=== PATIENT | female | born 1960 | race Caucasian/White ===

== ENCOUNTER 2023-03-13 11:01 | Outpatient (AMB) | payer MEDICARE, MEDICAID, SELFPAY ==
--- NOTE | 2023-03-13 11:05 | MHC.OFFVIS ---
Intake Vital Signs 03/13/23 11:09 Height 5 ft 2 in Weight 137 lb 2.04 oz BMI 25.1 BP 142/80 H Blood Pressure Location Rt brachial Position Sitting Pulse 80 Pulse Source Pulse Oximeter Temp 98.4 F Temp Source Skin Pulse Oximetry (%) 98 Intake Visit Reasons: Fibromyalgia -Confirmed Intake Note: New pt presents today for consult. 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 Her previous operations lieutenant left the practice. Patient stated that she was diagnosed around 2007 and was found to have Lyme disease as well as Kaitlin's granulomatosis. She had been on methotrexate for at least 15 years. She stated that she had been on 5 tabs once weekly for years and a few years ago her previous operations lieutenant Dr. Tuttle try to lower the dose to 4 tabs once weekly but her ANCA titers became positive so the dose was increased back to 5 tabs weekly. She is unaware of any other organ involvement other than the eyes. She denies any skin rashes, lung or kidney involvement. She follows up regularly with Ophthalmology. Recently patient has been having some right hand tingling and numbness as well as weakness. She was evaluated by hand surgeon and had a steroid injection without relief. She is scheduled for an EMG [facility] Medical History (Updated 03/13/23 @ 13:13 by Jerome Quinn MD) Cervical spondylosis with myelopathy Fibromyalgia Steroid-induced osteopenia Surgical History Hx of colonoscopy Status post ORIF of fracture of ankle Family History Mother Hypertension Hyperlipidemia Diabetes Erythromelalgia Depressive disorder Social History Household Members: Significant Other Alcohol intake: current Alcohol intake frequency: a few times a week Alcohol type: beer Patient Tobacco Use Status: Former Tobacco user Substance Use Type: Marijuana Current occupational status: retired and disabled 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 Female Reproductive History Menstrual Total pregnancies: 1 Ab induced: 1 Review of Systems Musc Reports arthralgias and Reports tingling Skin/Breast Denies rash Neuro Reports tingling Physical Exam Vital Signs: Last Vital Signs Temp 98.4 F 03/13/23 11:09 Pulse 80 03/13/23 11:09 BP 142/80 H 03/13/23 11:09 Pulse Ox 98 03/13/23 11:09 BMI result Body Mass Index 25.1 Const General: cooperative, healthy appearing and comfortable Nutritional Appearance: average body habitus Orientation/consciousness: patient oriented x3 Limitations: no limitations HEENT Head: Yes normocephalic and Yes atraumatic Mouth: moist mucous membranes Resp Effort & Inspection: normal respiratory effort and able to speak in complete sentences Auscultation: clear to auscultation bilaterally Cardio Rate: regular rate Rhythm: regular rhythm GI Inspection: No distended Palpation (GI): Soft to palpation and nontender Skin General skin exam: no rashes or lesions noted Neuro General: patient oriented x3 Results Reviewed Results Reviewed: Labs 06/2022? ANCA screen negative? MPO/PR3 negative? CRP normal Urinalysis with microscopic normal ESR normal? CBC unremarkable Assessment & Plan Assessment & Plan (1) Granulomatosis with polyangiitis: Comment: dx around 2007 retinal vasculitis & uveitis MTX since 2007 effective Code(s): M31.30 - Travis's granulomatosis without renal involvement Qualifiers: Granulomatosis renal involvement: without renal involvement Qualified Code(s): M31.30 - Travis's granulomatosis without renal involvement Plan: This is a 62-year-old female with a past medical history of GPA with retinal vasculitis and uveitis who presents as a new patient. Her previous operations lieutenant left the practice. Patient is unaware of any other organ involvement. Her disease has been very well controlled on methotrexate 12.5 mg once weekly for many years, a few years ago there was an attempt to reduce the dose to 10 mg once weekly but her ANCA titers became positive. Patient is in remission on current management. Resume methotrexate 12.5 mg weekly and folic acid daily Check labs today and in 3 months Follow-up in 6 months Plan I spent 46 minutes reviewing patient's chart, evaluating patient, ordering diagnostic workup, counseling patient and documenting in the chart Orders: Orders Comprehensive Met. Panel Today M3.30 - Travis's granulomatosis without renal involvement C Reactive Protein Today M31.30 - Travis's granulomatosis without renal involvement Protein Creatinine Ratio, Ur Today M31.30 - Travis's granulomatosis without renal involvement Complete Blood Count Auto Diff Today M31.30 - Travis's granulomatosis without renal involvement Erythrocyte Sedimentation Rate Today M31.30 - Travis's granulomatosis without renal involvement ANCA Vasculitides Today M3.30 - Travis's granulomatosis without renal involvement Immunofixation Pnl, Serum Today M3.30 - Travis's granulomatosis without renal involvement Protein Electrophoresis, Serum Today M3.30 - Travis's granulomatosis without renal involvement Hepatitis A,B,C Profile Today Z11.59 - Encounter for screening for other viral diseases T Spot TB Today Z11.7 - Encounter for testing for latent tuberculosis infection UA w Microscopic Today M31.30 - Travis's granulomatosis without renal involvement Comprehensive Met. Panel 3 Months 1.30 - Travis's granulomatosis without renal involvement C Reactive Protein 3 Months M31.30 - Travis's granulomatosis without renal involvement Protein Creatinine Ratio, Ur 3 Months M31.30 - Travis's granulomatosis without renal involvement Complete Blood Count Auto Diff 3 Months M31.30 - Travis's granulomatosis without renal involvement Erythrocyte Sedimentation Rate 3 Months M31.30 - Travis's granulomatosis without renal involvement UA w Microscopic 3 Months M31.30 - Travis's granulomatosis without renal involvement Coding Level of Care Code New Pt Level 4 (78410) Diagnoses Granulomatosis with polyangiitis Granulomatosis renal involvement: without renal involvement
[2023-03-13 11:09] VITALS: BP 142/80; PULSE 80; TEMP 36.9; O2SAT 98; BMI 25.1
== END 2023-03-13 11:52 | disposition home or self-care (01) ==
PROVIDERS: PCP Physician Assistant Medical; Visit Provider Student in an Organized Health Care Education/Training Program
DX: M31.30 Wegener's granulomatosis without renal involvement (principal)
CPT/HCPCS: 99204

== ENCOUNTER → 2023-03-13 11:01 | Outpatient (BNVA) | payer MEDICARE, MEDICAID, SELFPAY | PROVIDERS: PCP Physician Assistant Medical; Visit Provider Student in an Organized Health Care Education/Training Program | DX: M31.30 Wegener's granulomatosis without renal involvement (principal) | CPT/HCPCS: 99202 ==

== ENCOUNTER 2023-10-03 10:54 | Outpatient (AMB) | payer MEDICARE, MEDICAID, SELFPAY ==
[2023-10-03 10:57] VITALS: BP 130/68; PULSE 86; TEMP 36.1; O2SAT 91; BMI 24.4
--- NOTE | 2023-10-03 10:57 | A.OFFVIS_ITS ---
Intake Vital Signs 10/03/23 10:57 Height 5 ft 2 in Weight 133 lb 9.602 oz BMI 24.4 BP 130/68 Blood Pressure Location Lt brachial Position Sitting Pulse 86 Pulse Source Pulse Oximeter Temp 96.9 F Temp Source Skin Pulse Oximetry (%) 91 L Oxygen Delivery Method Room Air Intake Visit Reasons: 6 mnts f/u for GPA Intake Note: Patient last seen 03/13/23 presents today for follow up and test results. Reports eye doctors appt cancelled due to flu and pneumonia, new appt 10/19 Dr Prado. Has skipped last 2 doses of MTX due to illness. Office Analyst Required: No Accompanied by: Self / Same As Patient Allergies clindamycin Adverse Reaction (Intermediate, Verified 10/03/23 10:59) Rash, Fever, Hives Penicillins Adverse Reaction (Unknown, Verified 10/03/23 10:59) Hives Medication List - Last Reconciled 10/03/23 by Jerome Quinn MD acetaminophen (Tylenol Extra Strength) 500 mg PO Q6H PRN folic acid 0.8 mg PO DAILY methotrexate sodium 12.5 mg (5 x 2.5 mg) PO QWEEK raloxifene 60 mg PO DAILY HPI HPI Comments History of Present Illness Details 62-year-old female with GPA returns for follow-up. Patient states that she was doing well overall until last month when she developed flu-like illness. She held her methotrexate on a Sunday, her symptoms improved so she took the methotrexate on and the following Sunday, afterwards she started having worsening upper respiratory tract infection symptoms with worsening fevers. She was evaluated by her PCP. She tested positive for influenza and started on 2 antibiotics. She completed the antibiotics course about a week ago. She feels significantly better but feels that her chest is still a little congested with mild cough. Fever has resolved. Patient states that she is feeling well overall. 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 Her previous time signal wirer left the practice. Patient stated that she was diagnosed around 2007 and was found to have Lyme disease as well as Kaitlin's granulomatosis. She had been on methotrexate for at least 15 years. She stated that she had been on 5 tabs once weekly for years and a few years ago her previous time signal wirer Dr. Tuttle try to lower the dose to 4 tabs once weekly but her ANCA titers became positive so the dose was increased back to 5 tabs weekly. She is unaware of any other organ involvement other than the eyes. She denies any skin rashes, lung or kidney involvement. She follows up regularly with Ophthalmology. Recently patient has been having some right hand tingling and numbness as well as weakness. She was evaluated by hand surgeon and had a steroid injection without relief. 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 Female Reproductive History Menstrual Total pregnancies: 1 Ab induced: 1 Review of Systems Resp Reports chest congestion and Reports cough Skin/Breast Denies rash Physical Exam Vital Signs: Last Vital Signs Pulse 86 10/03/23 10:57 BP 130/68 10/03/23 10:57 Pulse Ox 91 L 10/03/23 10:57 Oxygen Delivery Method Room Air 10/03/23 10:57 BMI result Body Mass Index 24.4 Const General: cooperative, healthy appearing and comfortable Nutritional Appearance: average body habitus Orientation/consciousness: patient oriented x3 Limitations: no limitations HEENT Head: Yes normocephalic and Yes atraumatic Mouth: moist mucous membranes Resp Effort & Inspection: normal respiratory effort and able to speak in complete sentences Auscultation: rhonchi Cardio Rate: regular rate Rhythm: regular rhythm Skin General skin exam: no rashes or lesions noted Neuro General: patient oriented x3 Results Reviewed Results Reviewed: Labs 06/2022? ANCA screen negative? MPO/PR3 negative? CRP normal Urinalysis with microscopic normal ESR normal? CBC unremarkable Assessment & Plan Assessment & Plan (1) Granulomatosis with polyangiitis: Comment: dx around 2007 retinal vasculitis & uveitis MTX since 2007 effective Code(s): M31.30 - Travis's granulomatosis without renal involvement Qualifiers: Granulomatosis renal involvement: without renal involvement Qualified Code(s): M31.30 - Travis's granulomatosis without renal involvement Plan: This is a 63-year-old female with a past medical history of GPA with retinal vasculitis and uveitis who presents for follow-up. Patient is unaware of any other organ involvement. Her disease has been very well controlled on methot rexate 12.5 mg once weekly for many years, a few years ago there was an attempt to reduce the dose to 10 mg once weekly but her ANCA titers became positive. Patient is in remission on current management. Patient is recovering from a respiratory tract infection, advised patient to hold next week's methotrexate dose then resume methotrexate 12.5 mg weekly and folic acid daily Labs every 3 months. Follow-up in 6 months Plan I spent 26 minutes reviewing patient's chart, evaluating patient, ordering diagnostic workup, counseling patient and documenting in the chart Orders: Orders C Reactive Protein Today M31.30 - Travis's granulomatosis without renal involvement, Z79.631 - USP (current) use of antimetabolite agent Erythrocyte Sedimentation Rate Today M31.30 - Travis's granulomatosis without renal involvement, Z79.631 - USP (current) use of antimetabolite agent Complete Blood Count Auto Diff 03/31/24 M31.30 - Travis's granulomatosis without renal involvement, Z79.631 - USP (current) use of antimetabolite agent Complete Blood Count Auto Diff 09/27/24 M31.30 - Travis's granulomatosis without renal involvement, Z79.631 - USP (current) use of antimetabolite agent Complete Blood Count Auto Diff 12/26/24 M31.30 - Travis's granulomatosis without renal involvement, Z79.631 - regional intermodal truck driver (current) use of antimetabolite agent Complete Blood Count Auto Diff 03/26/25 M31.30 - Travis's granulomatosis without renal involvement, Z79.631 - regional intermodal truck driver (current) use of antimetabolite agent Complete Blood Count Auto Diff 06/24/25 M31.30 - Travis's granulomatosis without renal involvement, Z79.631 - USP (current) use of antimetabolite agent Comprehensive Met. Panel Today M31.30 - Travis's granulomatosis without renal involvement, Z79.631 - regional intermodal truck driver (current) use of antimetabolite agent Comprehensive Met. Panel 06/29/24 M31.30 - Travis's granulomatosis without renal involvement, Z79.631 - regional intermodal truck driver (current) use of antimetabolite agent Comprehensive Met. Panel 09/27/24 M31.30 - Travis's granulomatosis without renal involvement, Z79.631 - regional intermodal truck driver (current) use of antimetabolite agent Comprehensive Met. Panel 12/26/24 M31.30 - Travis's granulomatosis without renal involvement, Z79.631 - USP (current) use of antimetabolite agent Comprehensive Met. Panel 03/26/25 M31.30 - Travis's granulomatosis without renal involvement, Z79.631 - USP (current) use of antimetabolite agent Comprehensive Met. Panel 06/24/25 M31.30 - Travis's granulomatosis without renal involvement, Z79.631 - USP (current) use of antimetabolite agent C Reactive Protein Today M31.30 - Travis's granulomatosis without renal involvement, Z79.631 - USP (current) use of antimetabolite agent C Reactive Protein 06/29/24 M31.30 - Travis's granulomatosis without renal involvement, Z79.631 - regional intermodal truck driver (current) use of antimetabolite agent C Reactive Protein 09/27/24 M31.30 - Travis's granulomatosis without renal involvement, Z79.631 - regional intermodal truck driver (current) use of antimetabolite agent C Reactive Protein 12/26/24 M31.30 - Travis's granulomatosis without renal involvement, Z79.631 - regional intermodal truck driver (current) use of antimetabolite agent C Reactive Protein 03/26/25 M31.30 - Travis's granulomatosis without renal involvement, Z79.631 - USP (current) use of antimetabolite agent Erythrocyte Sedimentation Rate Today M31.30 - Travis's granulomatosis without renal involvement, Z79.631 - USP (current) use of antimetabolite agent Erythrocyte Sedimentation Rate 03/31/24 M31.30 - Travis's granulomatosis without renal involvement, Z79.631 - USP (current) use of antimetabolite agent Erythrocyte Sedimentation Rate 06/29/24 M31.30 - Travis's granulomatosis without renal involvement, Z79.631 - USP (current) use of antimetabolite agent Complete Blood Count Auto Diff Today M31.30 - Travis's granulomatosis without renal involvement, Z79.631 - USP (current) use of antimetabolite agent Comprehensive Met. 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 Panel 01/01/24 M31.30 - Travis's granulomatosis without renal involvement, Z79.631 - USP (current) use of antimetabolite agent Comprehensive Met. Panel 03/31/24 M31.30 - Travis's granulomatosis without renal involvement, Z79.631 - regional intermodal truck driver (current) use of antimetabolite agent C Reactive Protein 01/01/24 M31.30 - Travis's granulomatosis without renal involvement, Z79.631 - regional intermodal truck driver (current) use of antimetabolite agent C Reactive Protein 03/31/24 M31.30 - Travis's granulomatosis without renal involvement, Z79.631 - regional intermodal truck driver (current) use of antimetabolite agent C Reactive Protein 06/24/25 M31.30 - Travis's granulomatosis without renal involvement, Z79.631 - USP (current) use of antimetabolite agent Erythrocyte Sedimentation Rate 01/01/24 M31.30 - Travis's granulomatosis without renal involvement, Z79.631 - regional intermodal truck driver (current) use of antimetabolite agent Erythrocyte Sedimentation Rate 09/27/24 M31.30 - Travis's granulomatosis without renal involvement, Z79.631 - USP (current) use of antimetabolite agent Erythrocyte Sedimentation Rate 12/26/24 M31.30 - Travis's granulomatosis without renal involvement, Z79.631 - regional intermodal truck driver (current) use of antimetabolite agent Erythrocyte Sedimentation Rate 03/26/25 M31.30 - Travis's granulomatosis without renal involvement, Z79.631 - regional intermodal truck driver (current) use of antimetabolite agent Erythrocyte Sedimentation Rate 06/24/25 M31.30 - Travis's granulomatosis without renal involvement, Z79.631 - regional intermodal truck driver (current) use of antimetabolite agent Coding Level of Care Code Est Pt Level 4 (88450) Diagnoses Granulomatosis with polyangiitis without renal involvement M31.30 Granulomatosis renal involvement: without renal involvement
== END 2023-10-03 11:23 | disposition home or self-care (01) ==
PROVIDERS: PCP Physician Assistant Medical; Visit Provider Student in an Organized Health Care Education/Training Program
DX: M31.30 Wegener's granulomatosis without renal involvement (principal)
CPT/HCPCS: 99214

== ENCOUNTER → 2023-10-03 10:54 | Outpatient (BNVA) | payer MEDICARE, MEDICAID, SELFPAY | PROVIDERS: PCP Physician Assistant Medical; Visit Provider Student in an Organized Health Care Education/Training Program | DX: M31.30 Wegener's granulomatosis without renal involvement (principal) | CPT/HCPCS: 99212 ==

== ENCOUNTER 2024-03-25 10:42 | Outpatient (AMB) | payer MEDICARE, MEDICAID, SELFPAY ==
--- NOTE | 2024-03-25 10:57 | MHC.OFFVIS ---
Vital Signs 03/25/24 10:59 Height 5 ft 2 in Weight 134 lb 7.712 oz BMI 24.6 BP 122/68 Blood Pressure Location Lt brachial Position Sitting Pulse 69 Pulse Source Pulse Oximeter Pulse Oximetry (%) 97 Oxygen Delivery Method Room Air Intake Visit Reasons: GPA Intake Note: Patient presents for GPA. Allergies clindamycin Adverse Reaction (Intermediate, Verified 03/25/24 10:59) Rash, Fever, Hives Penicillins Adverse Reaction (Unknown, Verified 03/25/24 10:59) Hives Medication List - Last Reconciled 03/25/24 by Jerome Quinn MD acetaminophen (Tylenol Extra Strength) 500 mg PO Q6H PRN folic acid 0.8 mg PO DAILY methotrexate sodium 12.5 mg (5 x 2.5 mg) PO QWEEK raloxifene 60 mg PO DAILY HPI Comments Details: 63-year-old female with GPA returns for follow-up. She states that she is doing well overall. She states that she has developed an itchy skin rash on her left thigh laterally and posteriorly. She states that she gets these rashes on and off for years. She stopped using steroid creams as they can thin her skin, she has been using Benadryl cream. She is doing well otherwise. She denies any joint pain or swelling. Was evaluated by her consulting nurse 10/2023 and there was no evidence of active vasculitis. 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 Her previous human insights lead ads marketing left the practice. Patient stated that she was diagnosed around 2007 and was found to have Lyme disease as well as Kaitlin's granulomatosis. She had been on methotrexate for at least 15 years. She stated that she had been on 5 tabs once weekly for years and a few years ago her previous human insights lead ads marketing Dr. Tuttle try to lower the dose to 4 tabs once weekly but her ANCA titers became positive so the dose was increased back to 5 tabs weekly. She is unaware of any other organ involvement other than the eyes. She denies any skin rashes, lung or kidney involvement. She follows up regularly with Ophthalmology. Recently patient has been having some right hand tingling and numbness as well as weakness. She was evaluated by hand surgeon and had a steroid injection without relief. She is scheduled for an EMG 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 Female Reproductive History Menstrual Total pregnancies: 1 Ab induced: 1 Review of Systems Musc Denies arthralgias, Denies joint swelling and Denies stiffness Skin/Breast Reports pruritus and Reports rash Physical Exam Vital Signs: Last Vital Signs Pulse 69 03/25/24 10:59 BP 122/68 03/25/24 10:59 Pulse Ox 97 03/25/24 10:59 Oxygen Delivery Method Room Air 03/25/24 10:59 BMI result Body Mass Index 24.6 Const General: cooperative, healthy appearing and comfortable Nutritional Appearance: average body habitus Orientation/consciousness: patient oriented x3 Limitations: no limitations HEENT Head: Yes normocephalic and Yes atraumatic Mouth: moist mucous membranes Resp Effort & Inspection: normal respiratory effort and able to speak in complete sentences Cardio Rate: regular rate Rhythm: regular rhythm Skin Other: Rashes on lateral and posterior aspect of left thigh Neuro General: patient oriented x3 Extrem Other: No active synovitis today Assessment & Plan Assessment & Plan (1) Granulomatosis with polyangiitis: Comment: dx around 2007 retinal vasculitis & uveitis MTX since 2007 effective Code(s): M31.30 - Travis's granulomatosis without renal involvement Category: Medical Qualifiers: Granulomatosis renal involvement: without renal involvement Qualified Code(s): M31.30 - Travis's granulomatosis without renal involvement Plan: This is a 63-year-old female with a past medical history of GPA with retinal vasculitis and uveitis who presents for follow-up. Patient is unaware of any other organ involvement. Her disease has been very well controlled on methotrexate 12.5 mg once weekly for many years, a few years ago there was an attempt to reduce the dose to 10 mg once weekly but her ANCA titers became positive. Patient is in remission on current management. Most recent evaluation by consulting nurse was 10/2023 with no signs of active vasculitis Continued methotrexate 12.5 mg weekly and folic acid daily Labs every 3 months. 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
[2024-03-25 10:59] VITALS: BP 122/68; PULSE 69; O2SAT 97; BMI 24.6
== END 2024-03-25 11:39 | disposition home or self-care (01) ==
PROVIDERS: PCP Physician Assistant Medical; Visit Provider Student in an Organized Health Care Education/Training Program
DX: M31.30 Wegener's granulomatosis without renal involvement (principal); Z79.631 Long term (current) use of antimetabolite agent
CPT/HCPCS: 99214

== ENCOUNTER → 2024-03-25 10:42 | Outpatient (BNVA) | payer MEDICARE, MEDICAID, SELFPAY | PROVIDERS: PCP Physician Assistant Medical; Visit Provider Student in an Organized Health Care Education/Training Program | DX: M31.30 Wegener's granulomatosis without renal involvement (principal); Z79.631 Long term (current) use of antimetabolite agent | CPT/HCPCS: 99212 ==

== ENCOUNTER 2025-01-21 09:16 | Outpatient (AMB) | payer MEDICARE, MEDICAID, SELFPAY ==
--- NOTE | 2025-01-21 09:47 | MHC.OFFVIS ---
Vital Signs 01/21/25 09:51 Height 5 ft 2 in Weight 141 lb 1.533 oz BMI 25.8 BP 120/80 Blood Pressure Location Lt brachial Position Sitting Pulse 84 Pulse Source Pulse Oximeter Pulse Oximetry (%) 99 Oxygen Delivery Method Room Air Intake Visit Reasons: vasculitis Intake Note: Patient presents for Vasculitis follow up. Allergies clindamycin Adverse Reaction (Intermediate, Verified 01/21/25 09:51) Rash, Fever, Hives Penicillins Adverse Reaction (Unknown, Verified 01/21/25 09:51) Hives Medication List - Last Reconciled 01/21/25 by Melissa Mcelroy MD acetaminophen (Tylenol Extra Strength) 500 mg PO Q6H PRN folic acid 0.8 mg PO DAILY methotrexate sodium 12.5 mg (5 x 2.5 mg) PO QWEEK raloxifene 60 mg PO DAILY HPI Comments Details: Patient is a 64-year-old female with granulomatosis with polyangiitis here today for follow up Interval History: Patient last seen 03/25/[address] Quinn. At that time she was following up for her GPA on methotrexate 12.5 mg weekly. She had seen her implementation consultant 10/2023 with no evidence of vasculitis There was no examination evidence of active disease and no changes were made to her medication. Last visit with [facility] 09/09/24 The notes report her restless vasculitis is stable with no activity. 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 there was an attempt to reduce the dose to 10 mg once weekly but her ANCA titers became positive. 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 Her previous link knitting machine operator left the practice. Patient stated that she was diagnosed around 2007 and was found to have Lyme disease as well as Kaitlin's granulomatosis. She had been on methotrexate for at least 15 years. She stated that she had been on 5 tabs once weekly for years and a few years ago her previous link knitting machine operator Dr. Tuttle try to lower the dose to 4 tabs once weekly but her ANCA titers became positive so the dose was increased back to 5 tabs weekly. She is unaware of any other organ involvement other than the eyes. She denies any skin rashes, lung or kidney involvement. She follows up regularly with Ophthalmology. Recently patient has been having some right hand tingling and numbness as well as weakness. She was evaluated by hand surgeon and had a steroid injection without relief. She is scheduled for an EMG Current Rheumatology Medication(s): Methotrexate 12.5mg weekly Folic acid 0.8mcg daily [facility] Medical History Steroid-induced osteopenia Fibromyalgia Cervical spondylosis with myelopathy Surgical History Hx of colonoscopy Status post ORIF of fracture of ankle Family History Mother Hypertension Hyperlipidemia Diabetes Erythromelalgia Depressive disorder Social History Household Members: Significant Other Alcohol intake: current Alcohol intake frequency: a few times a week Alcohol type: beer Patient Tobacco Use Status: Former Tobacco user Substance Use Type: Marijuana Current occupational status: retired and disabled 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 Review of Systems Const Details: Review of Systems Constitutional: Denies fever, chills, weight loss ENT: Denies vision changes, eye pain or eye redness, dental caries, dry mouth GI: Denies nausea, vomiting, diarrhea, abdominal pain, change in BM Pulm: Denies SOB, ALCARAZ, hemoptysis, wheezing Cards: Denies chest pain, palpitations Skin: Denies Raynaud's, rash, nail changes, photosensitivity, LEGAL ADVISER: Denies headaches, weakness, paresthesias, recurrent falls MSK: as per HPI All other systems reviewed and are unremarkable except noted above Physical Exam Vital Signs: Last Vital Signs Pulse 84 01/21/25 09:51 BP 120/80 01/21/25 09:51 Pulse Ox 99 01/21/25 09:51 Oxygen Delivery Method Room Air 01/21/25 09:51 BMI result Body Mass Index 25.8 Vital signs reviewed Physical Examination CONSTITUITIONAL Patient alert and cooperative. Well appearing and in no apparent painful distress HEENT Conjunctiva and sclera clear. No lymphadenopathy. ? CHEST/RESPIRATORY SYSTEM Normal respiratory effort and able to speak in complete sentences. ?Clear to auscultation bilaterally. ?No crackles, rales, rhonchi, wheezes heard. CARDIAC SYSTEM Regular rate and rhythm. ?S1 and S2 heard no murmurs. ?Radial pulses intact bilaterally MSK Hands: ?Able to make a fist. No synovitis noted to the MCPs, PIPs or DIPs. ?No tenderness to palpation of these joints. traumatic amputation of the left index finger tip (accident several years ago) Wrists: ?Full range of motion at the wrists without pain. ?No tenderness to palpation or synovitis noted to the wrists. Elbows: Full range of motion without pain. No tenderness, weakness, swelling, increased warmth or erythema. Shoulders: Full range of active range of motion without pain. No tenderness, weakness, swelling, increased warmth or erythema. Knees: ?Full range of motion. ?No tenderness, swelling, increased warmth or erythema.?No effusion or crepitations Ankles: Full range of motion. ?No tenderness, swelling, increased warmth or erythema.? Feet: ?Negative squeeze test. ?No tenderness to palpation or swelling of the MTPs. Tender points:?No tenderness to palpation of the bilateral trapezius, supraspinatus, greater trochanters, anterior costochondral junctions, bilateral gluteal areas, bilateral suboccipital muscle insertions SKIN Skin intact without rashes. Results Reviewed Results Reviewed: [facility] group results reviewed Data results 12/26/2024 ESR 2.0 CRP 1.0 Hepatitis panel nonreactive TB test negative Data results 09/16/2024 WBC 5.53 Hemoglobin 13.9 Platelets 318 Creatinine 1.0 GFR >60 AST/ALT Assessment & Plan Assessment & Plan (1) Granulomatosis with polyangiitis: Comment: dx around 2007 retinal vasculitis & uveitis MTX since 2007 effective Attempted to wean Mtx 2019 but had elevated ANCAs with weaning Code(s): M31.30 - Travis's granulomatosis without renal involvement Category: Medical Qualifiers: Granulomatosis renal involvement: without renal involvement Qualified Code(s): M31.30 - Travis's granulomatosis without renal involvement Plan: #GPA Patient is a 64-year-old woman with GPA manifested as retinal vasculitis and uveitis here today for follow up. Currently in remission on methotrexate monotherapy. Plan - Methotrexate 12.5mg every week - Folic acid 0.8mcg daily - RTC 6 months - Labs before visit: CBC, CMP, ESR, CRP, ANCA (2) Screening for osteoporosis: Code(s): Z13.820 - Encounter for screening for osteoporosis Plan: #Screening for osteoporosis Currently does osteoporosis screening with her primary. Last bone density was 1 year ago which was normal. (3) correction methotrexate user: Code(s): Z79.631 - correction (current) use of antimetabolite agent Category: Medical Plan: #Long-term Current Use of Methotrexate Discussed with patient the benefits and risks of methotrexate for managing their rheumatic condition Benefits include reduced pain, reduced mortality, maintenance of remission and reduction of flares Risks include oral ulcers, photosensitivity, hepatotoxicity, hematologic toxicity, pneumonitis, flu-like symptoms (especially day after administration), nodulosis, lymphomas ? Limit alcohol and avoid Bactrim ? Monitoring: ?CBC, BMP, LFTs every 3-4 months and hepatitis serologies as needed Plan I spent 30 minutes reviewing the record and labs, taking a history, examining the patient, discussing the treatment plan, ordering diagnostic work up and documenting in the medical record Orders: Orders Comprehensive Met. Panel 6 Months M31.30 - Travis's granulomatosis without renal involvement C Reactive Protein 6 Months M31.30 - Travis's granulomatosis without renal involvement Protein Creatinine Ratio, Ur 6 Months M31.30 - Travis's granulomatosis without renal involvement UA w Microscopic 6 Months M31.30 - Travis's granulomatosis without renal involvement ANCA Vasculitides 6 Months M31.30 - Rtavis's granulomatosis without renal involvement Complete Blood Count Auto Diff 6 Months M31.30 - Travis's granulomatosis without renal involvement Erythrocyte Sedimentation Rate 6 Months M31.30 - Travis's granulomatosis without renal involvement Coding Level of Care Code Est Pt Level 4 (38260) Complex EM visit Add On G2211 Diagnoses Granulomatosis with polyangiitis without renal involvement M31.30 Granulomatosis renal involvement: without renal involvement Screening for osteoporosis Z13.820 rn long term care methotrexate user Z79.631
[2025-01-21 09:51] VITALS: BP 120/80; PULSE 84; O2SAT 99; BMI 25.8
== END 2025-01-21 10:49 | disposition home or self-care (01) ==
LOC: HO.RHE 09:16
PROVIDERS: PCP Physician Assistant Medical; Visit Provider Student in an Organized Health Care Education/Training Program
DX: M31.30 Wegener's granulomatosis without renal involvement (principal); Z13.820 Encounter for screening for osteoporosis; Z79.631 Long term (current) use of antimetabolite agent
CPT/HCPCS: 99214; G2211

== ENCOUNTER → 2025-01-21 09:16 | Outpatient (BNVA) | payer MEDICARE, MEDICAID, SELFPAY | PROVIDERS: PCP Physician Assistant Medical; Visit Provider Student in an Organized Health Care Education/Training Program | DX: M31.30 Wegener's granulomatosis without renal involvement (principal); Z13.820 Encounter for screening for osteoporosis; Z79.631 Long term (current) use of antimetabolite agent | CPT/HCPCS: 99212 ==

== ENCOUNTER 2025-07-22 10:15 | Outpatient (AMB) | payer MEDICARE, MEDICAID, SELFPAY ==
--- NOTE | 2025-07-22 10:23 | A.OFFVIS_ITS ---
Vital Signs 07/22/25 10:28 Height 5 ft 2 in Weight 134 lb 0.657 oz BMI 24.5 BP 124/80 Blood Pressure Location Lt brachial Position Sitting Pulse 81 Pulse Source Pulse Oximeter Pulse Oximetry (%) 98 Oxygen Delivery Method Room Air Intake Visit Reasons: vasculitis Intake Note: Patient presents for Vasculitis follow up and test results. Manufacturing Finance Manager Required: No Information Interpreted: non-clinical & clinical Accompanied by: Self / Same As Patient Allergies clindamycin Adverse Reaction (Intermediate, Verified 07/22/25 10:28) Rash, Fever, Hives Penicillins Adverse Reaction (Unknown, Verified 07/22/25 10:28) Hives HPI Comments Details: Patient is a 64-year-old female with granulomatosis with polyangiitis here today for follow up Interval History: Patient last seen 01/21/25 with me - On methotrexate 12.5mg weekly, folic acid 0.8mcg daily - Doing well - No new rashes - No new joint pain Today, - On methotrexate 12.5mg weekly, folic acid 0.8mcg daily - Doing well - Had a rash in the summer but this was attributed to her eczematous rashes, this has since resolved Rheumatologic History: 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 there was an attempt to reduce the dose to 10 mg once weekly but her ANCA titers became positive. 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 Her previous ring barker operator left the practice. Patient stated that she was diagnosed around 2007 and was found to have Lyme disease as well as Kaitlin's granulomatosis. She had been on methotrexate for at least 15 years. She stated that she had been on 5 tabs once weekly for years and a few years ago her previous ring barker operator Dr. Tuttle try to lower the dose to 4 tabs once weekly but her ANCA titers became positive so the dose was increased back to 5 tabs weekly. She is unaware of any other organ involvement other than the eyes. She denies any skin rashes, lung or kidney involvement. She follows up regularly with Ophthalmology. Recently patient has been having some right hand tingling and numbness as well as weakness. She was evaluated by hand surgeon and had a steroid injection without relief. She is scheduled for an EMG Current Rheumatology Medication(s): Methotrexate 12.5mg weekly Folic acid 0.8mcg daily [facility] Medical History (Updated 07/22/25 @ 10:28 by ROSETTE Quintanilla) Cataract Steroid-induced osteopenia Fibromyalgia Cervical spondylosis with myelopathy Surgical History Hx of colonoscopy Status post ORIF of fracture of ankle Family History Mother Hypertension Hyperlipidemia Diabetes Erythromelalgia Depressive disorder Social History Household Members: Significant Other Alcohol intake: current Alcohol intake frequency: a few times a week Alcohol type: beer Patient Tobacco Use Status: Former Tobacco user Substance Use Type: Marijuana Current occupational status: retired and disabled 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 Review of Systems Narrative Review of Systems Constitutional: Denies fever, chills, weight loss ENT: Denies vision changes, eye pain or eye redness, dental caries, dry mouth GI: Denies nausea, vomiting, diarrhea, abdominal pain, change in BM Pulm: Denies SOB, ALCARAZ, hemoptysis, wheezing Cards: Denies chest pain, palpitations Skin: Denies Raynaud's, rash, nail changes, photosensitivity, CLINICAL RESOURCE DIRECTOR: Denies headaches, weakness, paresthesias, recurrent falls MSK: as per HPI All other systems reviewed and are unremarkable except noted above Physical Exam Exam Exam: Vital signs reviewed Physical Examination CONSTITUITIONAL Patient alert and cooperative. Well appearing and in no apparent painful distress MSK Hands * Right Hand: Able to make a fist. No swelling or tenderness to palpation of the MCPs, PIPs or DIPs. * Left Hand: Able to make a fist. No swelling or tenderness to palpation of the MCPs, PIPs or DIPs. Traumatic amputation of the tip of the index finger * Herbedens nodes noted bilaterally Wrists * Right Wrist: Full ROM to flexion and extension. No swelling or TTP * Left Wrist: Full ROM to flexion and extension. No swelling or TTP Elbows * Right Elbow: Full ROM. No swelling or TTP. No TTP of the medial epicondyle. No TTP of the lateral epicondyle * Left Elbow: Full ROM. No swelling or TTP. No TTP of the medial epicondyle. No TTP of the lateral epicondyle Shoulders * Right shoulder: Full ROM. No swelling noted. No TTP of the AC joint. No TTP of the subacromial bursa. No TTP of the posterior shoulder * Left shoulder: Full ROM. No swelling noted. No TTP of the AC joint. No TTP of the subacromial bursa. No TTP of the posterior shoulder Knees * Right knee: No swelling noted. No TTP of the knee joint line. No TTP of pes anserine bursa * Left knee: No swelling noted. No TTP of the knee joint line. No TTP of pes anserine bursa. Ankles * Right ankle: Good ankle dorsiflexion and plantar flexion. No swelling. No TTP of the ankle joint * Left ankle: Good ankle dorsiflexion and plantar flexion. No swelling. No TTP of the ankle joint Feet * Right foot: Negative squeeze test * Left foot: Negative squeeze test Tender points? * No tenderness to palpation of the bilateral trapezius, supraspinatus, anterior costochondral junctions, bilateral suboccipital muscle insertions SKIN No rashes Vital Signs: Last Vital Signs Pulse 81 07/22/25 10:28 BP 124/80 07/22/25 10:28 Pulse Ox 98 07/22/25 10:28 Oxygen Delivery Method Room Air 07/22/25 10:28 BMI result Body Mass Index 24.5 Results Reviewed Results Reviewed: 06/12/25 [facility] WBC 8.55 Hb 14.2 Plt 44.2 BUN 93 Cr 1.0 eGFR >60 AST 16 ALT 23 ESR 1.0 CRP 2.6 ANCA Negative Urinalysis RBC 0-2 Protein Negative Assessment & Plan Assessment & Plan (1) Granulomatosis with polyangiitis: Comment: dx around 2007 retinal vasculitis & uveitis MTX since 2007 effective Attempted to wean Mtx 2019 but had elevated ANCAs with weaning Code(s): M31.30 - Travis's granulomatosis without renal involvement Category: Medical Qualifiers: Granulomatosis renal involvement: without renal involvement Qualified Code(s): M31.30 - Travis's granulomatosis without renal involvement Plan: #GPA Patient is a 64-year-old woman with GPA manifested as retinal vasculitis and uveitis here today for follow up. Currently in remission on methotrexate monotherapy. Plan - Methotrexate 12.5mg every week - Folic acid 0.8mcg daily - RTC 6 months - Labs before visit: CBC, CMP, ESR, CRP, ANCA (2) Screening for osteoporosis: Code(s): Z13.820 - Encounter for screening for osteoporosis Plan: #Screening for osteoporosis Currently does osteoporosis screening with her primary. Last bone density was 1 year ago which was normal. (3) retirement methotrexate user: Code(s): Z79.631 - terminal make up operator (current) use of antimetabolite agent Category: Medical Plan: #Long-term Current Use of Methotrexate Discussed with patient the benefits and risks of methotrexate for managing their rheumatic condition Benefits include reduced pain, reduced mortality, maintenance of remission and reduction of flares Risks include oral ulcers, photosensitivity, hepatotoxicity, hematologic toxicity, pneumonitis, flu-like symptoms (especially day after administration), nodulosis, lymphomas ? Limit alcohol and avoid Bactrim ? 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
[2025-07-22 10:28] VITALS: BP 124/80; PULSE 81; O2SAT 98; BMI 24.5
== END 2025-07-22 11:11 | disposition home or self-care (01) ==
LOC: HO.RHES 10:16
PROVIDERS: Visit Provider Student in an Organized Health Care Education/Training Program
DX: M31.30 Wegener's granulomatosis without renal involvement (principal); Z13.820 Encounter for screening for osteoporosis; Z79.631 Long term (current) use of antimetabolite agent
CPT/HCPCS: 99213; G2211

== ENCOUNTER → 2025-07-22 10:15 | Outpatient (BNVA) | payer MEDICARE, MEDICAID, SELFPAY | PROVIDERS: Visit Provider Student in an Organized Health Care Education/Training Program | DX: Z71.2 Person consulting for explanation of examination or test findings (principal); M31.30 Wegener's granulomatosis without renal involvement; Z79.631 Long term (current) use of antimetabolite agent | CPT/HCPCS: 99212 ==